=== PATIENT | female | born 1955 | race Caucasian/White ===

== ENCOUNTER 2025-01-04 16:37 | Observation (INO) ==
[2025-01-04 17:10] LABS: Hematocrit (blood only) 39.7 % (37.0-47.0); Hemoglobin 13.7 g/dl (12.0-16.0); Mean Corpuscular Hemoglobin 30.9 pg (25.0-34.0); Mean Corpuscular Volume 89.6 fL (80.0-100.0); Platelet Count 218 K/uL (130-400); RDW Standard Deviation 42.7 fL (36.4-46.3); Red Blood Count 4.43 M/uL (4.20-5.40); White Blood Count 12.16 K/ul (4.8-10.8)
[2025-01-04] MEDS: PIPERACILLIN/TAZOBACTAM 4.5 GM/100 ML BAG IV ONE (17:11)
[2025-01-04] MEDS: SODIUM CHLORIDE 0.9% 1,000 ML IV ONE (17:11)
[2025-01-04 17:16] LABS: Appearance Urine Clear (Clear); Bacteria Urine Automated None Seen (None Seen); Cast Urine Automated 0-2 /lpf (0-2); Epithelial Cell Urine Auto 0-2 /hpf (0-2); Glucose Urine UA Negative (Negative); WBC Urine Automated 0-5 /hpf (0-5)
[2025-01-04 17:29] LABS: Alanine Aminotransferase 35 U/L (7-52); Albumin Globulin Ratio 1.0 (0.9-2); Alkaline Phosphatase 116 U/L (34-104); Anion Gap 10 (3-11); Bilirubin,Total 0.5 mg/dl (0.2-1.0); Blood Urea Nitrogen 15 mg/dl (6-23); Calcium 9.9 mg/dl (8.6-10.3); Carbon Dioxide 22 mmol/L (21-32); Chloride 103 mmol/L (98-107); Globulin 4.0 gm/dl (2.5-4.0); Glucose 124 mg/dl (70-99(Fasting)); Lipase 30 U/L (11-82); Magnesium 2.0 mg/dl (1.7-2.4); Potassium 3.9 mmol/L (3.5-5.1); Sodium 135 mmol/L (136-145); Total Protein 8.1 gm/dl (6.0-8.3)
--- NOTE | 2025-01-04 17:33 | Emergency Department Note ---
Impression & Plan Acute cholecystitis ED Provider Note [facility] AGE: 69 SEX: F : 1955 ARRIVES VIA: Walk-In INFORMANT: Patient, ED PROVIDER(S): Emre Young MD CHIEF COMPLAINT: Cholecystitis HPI: This is an 69-year-old female presenting for cholecystitis. Patient has had symptoms since Tuesday. She went to her PCPs office who scheduled for blood work outpatient CT. 2 days ago she had a leukocytosis to 16. She had a outpatient CAT scan today that revealed acute cholecystitis with gallstone in the gallbladder neck. She reports her symptoms actually improving today. ROS: See above HPI for pertinent positives & negatives. A total of 10 systems reviewed and were otherwise negative. PAST MEDICAL HISTORY: See Below PAST SURGICAL HISTORY: See Below FAMILY HISTORY: See Below SOCIAL HISTORY: See Below HOME MEDICATIONS: See Below ALLERGIES: See Below VITALS: See Below PHYSICAL EXAMINATION: General: resting comfortably in no acute distress Head: Normocephalic and atraumatic Eyes: Normal inspection, extraocular muscles intact Ear, nose, throat: Normal external exam Neck: Normal range of motion Respiratory: lungs clear to auscultation bilaterally Cardiovascular: Regular rate/rhythm, no murmur GI: soft, mild right upper quadrant tenderness guarding or rebound Extremities: nontender, moves all extremities Neuro: The patient awake and alert, appropriately conversive, no focal deficits, symmetric faces Skin: Warm, dry, and intact MEDICAL DECISION MAKING: This is a 69-year-old female present for cholecystitis. -Repeat blood work does reveal downtrending leukocytosis, still elevated at 12. Negative lipase. No transaminitis. Mild tenderness to palpation -With patient's outpatient CT today showing acute cholecystitis, will discuss with surgery -Dr. Sorensen consulted, he states to me the patient to medicine and the cholecystectomy tomorrow -Patient admitted to Dr. Pool service Differential diagnosis: Cholecystitis Diagnostics interpreted by me: ECG: None Cardiac Monitoring: An order was placed for continuous cardiac monitoring. The monitor shows a rate of 80 with sinus rhythm. 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 Arthritis of carpometacarpal (CMC) joint of left thumb Thyroid nodule BIOPSY BENIGN>BEING MONITORED VIA ULTRASOUND History of diverticulitis History of stomach ulcers Surgical History History of carpal tunnel release L History of colonoscopy Hx of foot surgery bilateral plantar fasciitis release History of endometrial ablation History of tubal ligation S/P epidural steroid injection Lumbar H/O meniscectomy of right knee Hx of total knee arthroplasty right knee - November 2013 left knee - February 2014 Family History Grandmother (Maternal) Heart disease Colorectal cancer Cancer Father Melanoma Cancer Grandmother (Paternal) Heart disease Mother Hearing loss Psoriatic arthritis Hypertension Osteoporosis Osteoarthritis Nerve damage Grandfather (Maternal) Alcohol abuse Other Myocardial infarction No family history of adverse response to anesthesia No family history of bleeding disorder Denies family history of Ovarian cancer Prostate cancer Breast cancer Social History Smoking Status: Never smoker Tobacco Type: Cigarettes Age Started Using Tobacco: 16; Age Quit Using Tobacco: 18; packs per day: 0.75; Second Hand Exposure: No; Do You Dip or Chew Tobacco: No; Hx Alcohol Use: No Hx Substance Use: No Preferred Language: Bruneian Communication Ability: Effective Visual Impairment: No Limitations Hearing Ability: Normal Automotive Technology Instructor Required: No Beliefs That Will Affect Care: None marital status: / Current Living Situation: Alone current occupational status: retired 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 [employer] How many Children do You have: 1 Other Information That Helps Us Care for You: No Feels Safe at Home: Yes Safety Concerns: Feels Safe At This Time Childhood Exposure to Second-Hand Smoke: No Diet: regular caffeine: Yes Dental Care, Regularly: Yes Physical Activity Frequency: Does not Exercise Seatbelt Use: always Sunscreen Use: Yes Gender Identity: Female Assistive Devices: None Allergies Allergies Allergy/AdvReac Type Severity Reaction Status Date / Time Iodinated Contrast Media Allergy Intermediate Hives Verified 01/04/25 18:01 vancomycin Allergy Intermediate hearing Verified 01/04/25 18:01 loss Home Meds Home Medications Medication Instructions Recorded Confirmed famotidine 20 mg tablet 20 mg PO DAILY PRN Heartburn 06/15/19 01/04/25 naproxen sodium 220 mg capsule 220 mg PO BID PRN Pain 06/15/19 01/04/25 ascorbic acid (vitamin C) 500 mg 500 mg PO DAILY 07/21/21 01/04/25 capsule calcium carbonate 500 mg PO DAILY 07/21/21 01/04/25 cetirizine 10 mg tablet 10 mg PO QAM PRN Allergy Symptoms 07/21/21 01/04/25 hydrocortisone 2.5 % topical cream 1 applic topical BID PRN Skin 07/21/21 01/04/25 Irritation fluticasone propionate 50 2 spray intranasal DAILY PRN Nasal 10/14/22 01/04/25 mcg/actuation nasal Congestion spray,suspension methylprednisolone 4 mg tablet 0 mg PO ONCE PRN PRIOR TO CT SCAN 01/04/25 01/04/25 (ALLERGY) vitamin B complex 1 tab PO DAILY 01/04/25 01/04/25 zinc gluconate 50 mg tablet 50 mg PO DAILY PRN COLD/FLU SEASON 01/04/25 01/04/25 Previous Rx's Medication Instructions Recorded cholecalciferol (vitamin D3) 125 5,000 units PO DAILY #30 caps 06/15/19 mcg (5,000 unit) capsule diclofenac sodium 1 % topical gel 4 gm topical QID PRN pain #100 06/15/19 grams ferrous sulfate 325 mg (65 mg 325 mg PO DAILY #30 tabs 06/15/19 iron) tablet (FeroSul) multivitamin 1 tab PO DAILY #30 tabs 06/15/19 ondansetron 4 mg disintegrating 4 mg PO Q8H PRN nausea and 01/02/25 tablet vomiting #20 tabs Results & Data (ED) Vital Signs Vital Signs - 24 hr 01/04/25 16:39 Temperature 36.9 C Temperature Source Temporal Artery Scan Pulse Rate 88 Respiratory Rate 19 Respiratory Effort / Characteristics Non-Labored Spontaneous Respiratory Depth Normal Blood Pressure 179/90 H Blood Pressure Mean 119 Pulse Oximetry 97 Oxygen Delivery Method Room Air Sepsis Recent Fever Within 48 Hours No Sepsis New/Unexplained Change in Mental Status N/A Sepsis Action Taken by Nursing No Action Required Laboratory Data 01/04/25 16:50 01/04/25 16:50 Lab Results 01/04/25 Range/Units 16:50 WBC 12.16 H (4.8-10.8) K/ul RBC 4.43 (4.20-5.40) M/uL Hgb 13.7 (12.0-16.0) g/dl Hct 39.7 (37.0-47.0) % MCV 89.6 (80.0-100.0) fL MCH 30.9 (25.0-34.0) pg MCHC 34.5 (32.0-36.0) g/dL RDW Std Deviation 42.7 (36.4-46.3) fL RDW Coeff of Robbie 13.0 (11.5-14.5) % Plt Count 218 (130-400) K/uL MPV 10.2 (9.4-12.4) fL Immature Gran % (Auto) 0.4 % Neut % (Auto) 90.8 % Lymph % (Auto) 7.5 % [place] % (Auto) 1.2 % Eos % (Auto) 0.0 % Baso % (Auto) 0.1 % Neut # (Auto) 11.05 H (1.40-6.50) K/uL Lymph # (Auto) 0.91 L (1.20-3.40) K/uL [place] # (Auto) 0.14 (0.11-0.59) K/uL Eos # (Auto) 0.00 (0.00-0.50) K/uL Baso # (Auto) 0.01 (0.00-0.20) K/uL Immature Gran # (Auto) 0.05 (0.01-0.20) K/uL Sodium 135 L (136-145) mmol/L Potassium 3.9 (3.5-5.1) mmol/L Chloride 103 (98-107) mmol/L Carbon Dioxide 22 (21-32) mmol/L Anion Gap 10 (3-11) BUN 15 (6-23) mg/dl Creatinine 0.68 (0.6-1.2) mg/dl Est Cr Clr Drug Dosing Not Reportable eGFR 94.22 BUN/Creatinine Ratio 22.1 H (10-20) Glucose 124 H (70-99(Fasting)) mg/dl Calcium 9.9 (8.6-10.3) mg/dl Magnesium 2.0 (1.7-2.4) mg/dl Total Bilirubin 0.5 (0.2-1.0) mg/dl AST 24 (13-39) U/L ALT 35 (7-52) U/L Alkaline Phosphatase 116 H (34-104) U/L Total Protein 8.1 (6.0-8.3) gm/dl Albumin 4.1 (3.4-5.0) gm/dl Globulin 4.0 (2.5-4.0) gm/dl Albumin/Globulin Ratio 1.0 (0.9-2) Lipase 30 (11-82) U/L Urine Color Yellow Urine Appearance Clear (Clear) Urine pH 6.0 (4.5-7.5) Ur Specific [place] > 1.045 H (1.000-1.030) Urine Protein 1+ H (Negative) Urine Glucose (UA) Negative (Negative) Urine Ketones 1+ H (Negative) Urine Blood Negative (Negative) Urine Nitrite Negative (Negative) Urine Bilirubin Negative (Negative) Urine Urobilinogen Negative (Negative) Ur Leukocyte Esterase Negative (Negative) Urine WBC (Auto) 0-5 (0-5) /hpf Urine RBC (Auto) 3-5 H (0-2) /hpf U Hyaline Cast (Auto) 0-2 (0-2) /lpf U Epithel Cells (Auto) 0-2 (0-2) /hpf Urine Bacteria (Auto) None Seen (None Seen) Urine Comment Administered Medications Lactated Ringer's (Lr) 1,000 mls @ 80 mls/hr IV .[id number] Stop: 01/05/25 06:59 Last Admin: 01/04/25 18:47 Dose: 80 mls/hr Documented By: CEF Discontinued Medications Sodium Chloride (Nss) 1,000 mls @ 999 mls/hr IV .[id number] ONE Stop: 01/04/25 17:45 Last Infusion: 01/04/25 18:43 Dose: Infused Documented By: Admin: 01/04/25 17:11 Dose: 999 mls/hr Documented By: CATHIE Piperacillin Sod/Tazobactam Sod (Zosyn) 4.5 gm in 100 mls @ 200 mls/hr IV NOW ONE Stop: 01/04/25 17:16 Last Infusion: 01/04/25 18:43 Dose: Infused Documented By: Admin: 01/04/25 17:11 Dose: 200 mls/hr Documented By: ARS Discharge Plan Visit Data Chief Complaint: Referred by Doctor Stated Complaint: INFLAMED GALL BLADDER, GALL STONE ED Provider: Emre Young Discharge Problem: Acute cholecystitis Patient Disposition: Admitted As Inpatient Condition: Fair Discharge Instructions Interventions: ED Discharge Assessment Last Done: 01/04/25 19:22
[2025-01-04 17:41] LABS: Immature Granulocytes # (auto) 0.05 K/uL (0.01-0.20); Immature Granulocytes % (auto) 0.4 %
--- NOTE | 2025-01-04 18:07 | Anesthesiology Consultation ---
Date of Service January 04, 2025 Assessment & Plan Chart Review Chart Review: Acceptable Risk for Surgery and Patient NOT seen in Pre Admission Testing Consults Requested none ASA ASA2 Proposed Anesthesia Anesthesia Type: General History Surgery Operation Date: 01/05/25 08:30 Proposed Procedures p Laparoscopic Cholecystectomy - Ricki Sorensen MD Height/Weight Height: 5 ft 7 in Allergies Allergy/AdvReac Type Severity Reaction Status Date / Time Iodinated Contrast Media Allergy Intermediate Hives Verified 01/04/25 18:01 vancomycin Allergy Intermediate hearing Verified 01/04/25 18:01 loss Medications Home Medications Medication Instructions Recorded Confirmed Last Taken cholecalciferol (vitamin D3) 125 5,000 units PO DAILY #30 caps 06/15/19 01/04/25 02/22/22 mcg (5,000 unit) capsule diclofenac sodium 1 % topical gel 4 gm topical QID PRN pain #100 06/15/19 01/04/25 Unknown grams famotidine 20 mg tablet 20 mg PO DAILY PRN Heartburn 06/15/19 01/04/25 02/22/22 ferrous sulfate 325 mg (65 mg 325 mg PO DAILY #30 tabs 06/15/19 01/04/25 02/22/22 iron) tablet (FeroSul) multivitamin 1 tab PO DAILY #30 tabs 06/15/19 01/04/25 02/22/22 naproxen sodium 220 mg capsule 220 mg PO BID PRN Pain 06/15/19 01/04/25 02/22/22 ascorbic acid (vitamin C) 500 mg 500 mg PO DAILY 07/21/21 01/04/25 02/22/22 capsule calcium carbonate 500 mg PO DAILY 07/21/21 01/04/25 02/22/22 cetirizine 10 mg tablet 10 mg PO QAM 07/21/21 01/04/25 02/22/22 hydrocortisone 2.5 % topical cream 1 applic topical BID PRN . 07/21/21 01/04/25 Unknown fluticasone propionate 50 2 spray intranasal DAILY PRN 10/14/22 01/04/25 Unknown mcg/actuation nasal spray,suspension ondansetron 4 mg disintegrating 4 mg PO Q8H PRN nausea and 01/02/25 01/04/25 Unknown tablet vomiting #20 tabs methylprednisolone 4 mg tablet 0 mg PO ONCE PRN PRIOR TO CT SCAN 01/04/25 01/04/25 01/04/25 (ALLERGY) vitamin B complex 1 tab PO DAILY 01/04/25 01/04/25 01/03/25 zinc gluconate 50 mg tablet 50 mg PO DAILY PRN COLD/FLU SEASON 01/04/25 01/04/25 Unknown Past Medical History Medical History History of diverticulitis History of stomach ulcers ASCVD Aorta HLD ? HTN Exercise / Class Metabolic Activity II 4-5 Yardwork/Stairs/Walk up hill Past Family History Family History Grandmother (Maternal) Heart disease Colorectal cancer Cancer Father Melanoma Cancer Grandmother (Paternal) Heart disease Mother Hearing loss Psoriatic arthritis Hypertension Osteoporosis Osteoarthritis Nerve damage Grandfather (Maternal) Alcohol abuse Other Myocardial infarction No family history of adverse response to anesthesia No family history of bleeding disorder Denies family history of Ovarian cancer Prostate cancer Breast cancer Past Surgical History Surgical History History of carpal tunnel release L History of colonoscopy Hx of foot surgery bilateral plantar fasciitis release History of endometrial ablation History of tubal ligation S/P epidural steroid injection Lumbar H/O meniscectomy of right knee Hx of total knee arthroplasty right knee - November 2013 left knee - February 2014 Past Anesthesia History No Hx of Anesthesia Complications and No Family Hx of Anesthesia Complications History of PONV No Hx of PONV and No Hx of Motion Sickness Social History Smoking Status: Former smoker tobacco type: cigarettes Do You Dip or Chew Tobacco: No Hx Alcohol Use: Yes Alcohol type: wine alcohol intake frequency: holidays/special occasions only Hx Substance Use: No substance use type: does not use Physical Exam Vital Signs Last Vital Signs Temp 36.9 C 01/04/25 16:39 Pulse 88 01/04/25 16:39 Resp 19 01/04/25 16:39 BP 179/90 H 01/04/25 16:39 Pulse Ox 97 01/04/25 16:39 O2 Del Method Room Air 01/04/25 16:39 Testing Laboratory Results 01/04/25 16:50 01/04/25 16:50 Urine Color Yellow 01/04/25 16:50 Urine Appearance Clear (Clear) 01/04/25 16:50 Urine pH 6.0 (4.5-7.5) 01/04/25 16:50 Ur Specific [place] > 1.045 (1.000-1.030) H 01/04/25 16:50 Urine Protein 1+ (Negative) H 01/04/25 16:50 Urine Glucose (UA) Negative (Negative) 01/04/25 16:50 Urine Ketones 1+ (Negative) H 01/04/25 16:50 Urine Nitrite Negative (Negative) 01/04/25 16:50 Ur Leukocyte Esterase Negative (Negative) 01/04/25 16:50 Urine WBC (Auto) 0-5 /hpf (0-5) 01/04/25 16:50 Urine RBC (Auto) 3-5 /hpf (0-2) H 01/04/25 16:50 U Hyaline Cast (Auto) 0-2 /lpf (0-2) 01/04/25 16:50 U Epithel Cells (Auto) 0-2 /hpf (0-2) 01/04/25 16:50 Urine Bacteria (Auto) None Seen (None Seen) 01/04/25 16:50 Electrocardiogram Date: 10/10/20 Findings: + NSR @ (@ 71;LAD;Low voltage ) Chest X-Ray Date: 05/13/23 Findings: + NAD and + atherosclerosis of thoracic aorta
--- NOTE | 2025-01-04 18:32 | History & Physical Report ---
Date of Service January 04, 2025 Assessment & Plan (1) Acute cholecystitis: (2) Iron deficiency anemia: Plan 69 y/o female with PMh of Sensorineural hearing loss, OA, iron deficiency anemia admitted for acute cholecystitis. Patient will be admitted for IV antibiotics and surgical procedure in AM Acute cholecystitis - RUQ pain, nausea, chills since that started on 01/02 - Outpatient Abdomen CT with findings of acute cholecystitis - WBC with leukocytosis of 12.16 - Alkaline phosphatase: 116, AST: 24, ALT 35 - Surgery consulted: Plan for Lap cholecystectomy tomorrow AM - NPO now, LR 80 ml/hr - Continue Zosyn IV until surgical intervention - Pain management - Tylenol, morphine as needed - Labs AM DVT prophylaxis: SCD only due to surgical intervention Dispo : Med surg History of Present Illness Chief Complaint: Primary Care Provider: Amira Burkett MD Patient is a 69 y/o female with PMH of Sensorineural hearing loss, OA, iron deficiency anemia that presented to the Ed due to Acute cholecystitis. Patient developed RUQ pain, nausea, chills in Tuesday. Pain worsen over the next couple of days. She saw her PCP on 01/02 which ordered Labs and Abdomen CT. She was sent to the ED by PCP after CT results of Acute cholecystitis. Patient states having nausea and minimal diarrhea. She denied any fevers, but attributes some chills. Denies chest pain, SOB, palpitations. Denied any side effects with anesthesia in the past. Ed course: started on zosyn, IV NSS. Allergies Allergy/AdvReac Type Severity Reaction Status Date / Time Iodinated Contrast Media Allergy Intermediate Hives Verified 01/04/25 18:01 vancomycin Allergy Intermediate hearing Verified 01/04/25 18:01 loss Home Medications Medication Instructions Recorded Confirmed Type cholecalciferol (vitamin D3) 125 5,000 units PO DAILY #30 caps 06/15/19 01/04/25 Rx mcg (5,000 unit) capsule diclofenac sodium 1 % topical gel 4 gm topical QID PRN pain #100 06/15/19 01/04/25 Rx grams famotidine 20 mg tablet 20 mg PO DAILY PRN Heartburn 06/15/19 01/04/25 History ferrous sulfate 325 mg (65 mg 325 mg PO DAILY #30 tabs 06/15/19 01/04/25 Rx iron) tablet (FeroSul) multivitamin 1 tab PO DAILY #30 tabs 06/15/19 01/04/25 Rx naproxen sodium 220 mg capsule 220 mg PO BID PRN Pain 06/15/19 01/04/25 History ascorbic acid (vitamin C) 500 mg 500 mg PO DAILY 07/21/21 01/04/25 History capsule calcium carbonate 500 mg PO DAILY 07/21/21 01/04/25 History cetirizine 10 mg tablet 10 mg PO QAM PRN Allergy Symptoms 07/21/21 01/04/25 History hydrocortisone 2.5 % topical cream 1 applic topical BID PRN Skin 07/21/21 01/04/25 History Irritation fluticasone propionate 50 2 spray intranasal DAILY PRN Nasal 10/14/22 01/04/25 History mcg/actuation nasal Congestion spray,suspension ondansetron 4 mg disintegrating 4 mg PO Q8H PRN nausea and 01/02/25 01/04/25 Rx tablet vomiting #20 tabs methylprednisolone 4 mg tablet 0 mg PO ONCE PRN PRIOR TO CT SCAN 01/04/25 01/04/25 History (ALLERGY) vitamin B complex 1 tab PO DAILY 01/04/25 01/04/25 History zinc gluconate 50 mg tablet 50 mg PO DAILY PRN COLD/FLU SEASON 01/04/25 01/04/25 History Past Med/Surg History Problem List (Updated 01/04/25 @ 18:50 by Tommie Pool MD) Acute cholecystitis Iron deficiency anemia Sensorineural hearing loss (SNHL) of both ears Bilateral tinnitus Medical History (Updated 01/04/25 @ 18:50 by Tommie Pool MD) Goiter Arthritis of left subtalar joint Right carpal tunnel syndrome 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 Arthritis of carpometacarpal (CMC) joint of left thumb Thyroid nodule BIOPSY BENIGN>BEING MONITORED VIA ULTRASOUND History of diverticulitis History of stomach ulcers Surgical History History of carpal tunnel release L History of colonoscopy Hx of foot surgery bilateral plantar fasciitis release History of endometrial ablation History of tubal ligation S/P epidural steroid injection Lumbar H/O meniscectomy of right knee Hx of total knee arthroplasty right knee - November 2013 left knee - February 2014 Family History Grandmother (Maternal) Heart disease Colorectal cancer Cancer Father Melanoma Cancer Grandmother (Paternal) Heart disease Mother Hearing loss Psoriatic arthritis Hypertension Osteoporosis Osteoarthritis Nerve damage Grandfather (Maternal) Alcohol abuse Other Myocardial infarction No family history of adverse response to anesthesia No family history of bleeding disorder Denies family history of Ovarian cancer Prostate cancer Breast cancer Social History Smoking Status: Former smoker Tobacco Type: Cigarettes Age Started Using Tobacco: 16; Age Quit Using Tobacco: 18; packs per day: 0.75; Second Hand Exposure: No; Do You Dip or Chew Tobacco: No; Hx Alcohol Use: Yes Alcohol type: wine Alcohol Intake Frequency: Monthly or Less Hx Substance Use: No Preferred Language: Occitan Communication Ability: Effective Visual Impairment: No Limitations Hearing Ability: Normal Principal Systems Engineer Required: No Beliefs That Will Affect Care: None marital status: / Current Living Situation: Alone current occupational status: retired 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 [email or web address] How many Children do You have: 1 Feels Safe at Home: Yes Childhood Exposure to Second-Hand Smoke: No Diet: regular caffeine: Yes Dental Care, Regularly: Yes Physical Activity Frequency: Does not Exercise Seatbelt Use: always Sunscreen Use: Yes Gender Identity: Female Assistive Devices: Contacts, Denture - Lower and Glasses Review of Systems Review of Systems: as per HPI Physical Exam Constitutional: well developed and well nourished; no acute distress Eyes: PERRL, conjunctivae normal, anicteric sclerae Respiratory: normal respiratory effort, lungs clear to auscultation Cardiovascular: RRR, no murmur, no edema Gastrointestinal (Abdomen): Inspection/Auscultation: abdomen normal to inspection and normal bowel sounds Percussion/Palpation: + abdomen tender (Mild RUQ tenderness) and abdomen soft; no guarding, abdomen not rigid and no hepatosplenomegaly Skin: no rashes, warm and dry Results & Data Results & Data Vital Signs (Past 12 Hours) Vital Signs Temp Pulse Resp BP Pulse Ox O2 Del Method 01/04/25 16:39 36.9 C 88 19 179/90 H 97 Room Air Code Status & VTE Plan VTE Prophylaxis Plan VTE Prophylaxis will be ordered: Yes Supervising Physician Co-Signing Physician Notes Attending attestation Pt seen and examined in concert with Dr. Tom Richmond. In agreement with the documented findings as noted in the resident documentation with any exceptions or additions as noted here. Resting comfortably in bed without pain, nausea, vomiting at time of examination. 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 Also concerned re: diet at [place] next week. VS as noted. On examination, S1/S2 nl RRR no MCG. CTAB. Abd NT/ND BS+ve Cholecystitis - general surg consult - NPO past midnight w/ IVF for OR in AM. Pain control as noted. Continue pip/tazo SNHL secondary to vancomycin - avoid use Iron deficiency anemia - Hgb stable as noted - monitor perioperatively Else see resident documentation as noted. Resident Activity Tracking Resident Involvement: Resident Care Provided Care Provided: Adult Hospital Medicine
[2025-01-04] MEDS: LACTATED RINGER'S 1,000 ML IV SCH (18:47)
[2025-01-04] MEDS ORDERED: MELATONIN 3 MG TAB PO PRN (19:54)
[2025-01-04] MEDS ORDERED: FAMOTIDINE 20 MG TAB PO PRN (19:54)
[2025-01-04] MEDS ORDERED: FLUTICASONE PROPIONATE NA SPR 16 GM BTL NAE PRN (19:54)
[2025-01-04] MEDS ORDERED: CETIRIZINE HCL 10 MG TABLET PO PRN (19:54)
[2025-01-04] MEDS ORDERED: ONDANSETRON INJ 2 MG/ML 2 ML VIAL IV PRN (19:54)
[2025-01-04] MEDS: PIPERACILLIN/TAZOBACTAM 4.5 GM/100 ML BAG IV SCH (23:29)
[2025-01-05 07:03] LABS: Hematocrit (blood only) 40.9 % (37.0-47.0); Hemoglobin 13.4 g/dl (12.0-16.0); Immature Granulocytes # (auto) 0.11 K/uL (0.01-0.20); Immature Granulocytes % (auto) 0.7 %; Mean Corpuscular Hemoglobin 30.3 pg (25.0-34.0); Mean Corpuscular Volume 92.5 fL (80.0-100.0); Platelet Count 226 K/uL (130-400); RDW Standard Deviation 44.1 fL (36.4-46.3); Red Blood Count 4.42 M/uL (4.20-5.40); White Blood Count 14.73 K/ul (4.8-10.8)
[2025-01-05] MEDS ORDERED: MIDAZOLAM HCL 1 MG/ML 2ML VIAL ONE (07:24)
[2025-01-05 07:33] LABS: INR 1.0 (0.9-1.1); Partial Thromboplastin Time 28 Seconds (21-31); Prothrombin Time 11.2 Seconds (9.0-12.0)
[2025-01-05 07:35] LABS: Alanine Aminotransferase 30.0 U/L (7-52); Albumin Globulin Ratio 1.2 (0.9-2); Alkaline Phosphatase 100.0 U/L (34-104); Anion Gap 9.0 (3-11); Bilirubin,Total 0.5 mg/dl (0.2-1.0); Blood Urea Nitrogen 15.0 mg/dl (6-23); Calcium 9.6 mg/dl (8.6-10.3); Carbon Dioxide 26.0 mmol/L (21-32); Chloride 107.0 mmol/L (98-107); Creatinine Clr Calc Pharmacy 86.9 ml/min; Globulin 3.3 gm/dl (2.5-4.0); Glucose 93.0 mg/dl (70-99(Fasting)); Potassium 3.6 mmol/L (3.5-5.1); Sodium 142.0 mmol/L (136-145); Total Protein 7.3 gm/dl (6.0-8.3)
[2025-01-05] MEDS ORDERED: ONDANSETRON INJ 2 MG/ML 2 ML VIAL ONE (07:54)
[2025-01-05] MEDS ORDERED: PROPOFOL IV EMULSION 10 MG/ML 20 ML VIAL IV ONE ×2 (07:54→10:35)
[2025-01-05] MEDS ORDERED: DEXAMETHASONE SOD INJ 4 MG/ML VIAL ONE (07:54)
[2025-01-05] MEDS ORDERED: ROCURONIUM BROMIDE 10 MG/ML 5 ML VIAL IV ONE (07:54)
[2025-01-05] MEDS ORDERED: LIDOCAINE 2% 2 ML VIAL/AMP(20MG/ML) INFIL ONE (07:54)
[2025-01-05] MEDS ORDERED: ACETAMINOPHEN 1000 MG/100 ML IV IV ONE (09:15)
--- NOTE | 2025-01-05 09:17 | Surgery Consultation ---
Date of Consultation January 05, 2025 Assessment & Plan (1) Acute cholecystitis: IVF IV abx to OR for lap chana risks discussed in detail History of Present Illness Attending Physician: Chung Walker History of Present Illness This is a 69YO female admitted with acute cholecystitis. Her pain has improved but did have nausea and chills associated. An outpatient CT scan showed acute cholecystitis. She denied any fevers, but attributes some chills. Allergies Allergy/AdvReac Type Severity Reaction Status Date / Time Iodinated Contrast Media Allergy Intermediate Hives Verified 01/04/25 18:01 vancomycin Allergy Intermediate hearing Verified 01/04/25 18:01 loss Home Medications Medication Instructions Recorded Confirmed Type cholecalciferol (vitamin D3) 125 5,000 units PO DAILY #30 caps 06/15/19 01/04/25 Rx mcg (5,000 unit) capsule diclofenac sodium 1 % topical gel 4 gm topical QID PRN pain #100 06/15/19 01/04/25 Rx grams famotidine 20 mg tablet 20 mg PO DAILY PRN Heartburn 06/15/19 01/04/25 History ferrous sulfate 325 mg (65 mg 325 mg PO DAILY #30 tabs 06/15/19 01/04/25 Rx iron) tablet (FeroSul) multivitamin 1 tab PO DAILY #30 tabs 06/15/19 01/04/25 Rx naproxen sodium 220 mg capsule 220 mg PO BID PRN Pain 06/15/19 01/04/25 History ascorbic acid (vitamin C) 500 mg 500 mg PO DAILY 07/21/21 01/04/25 History capsule calcium carbonate 500 mg PO DAILY 07/21/21 01/04/25 History cetirizine 10 mg tablet 10 mg PO QAM PRN Allergy Symptoms 07/21/21 01/04/25 History hydrocortisone 2.5 % topical cream 1 applic topical BID PRN Skin 07/21/21 01/04/25 History Irritation fluticasone propionate 50 2 spray intranasal DAILY PRN Nasal 10/14/22 01/04/25 History mcg/actuation nasal Congestion spray,suspension ondansetron 4 mg disintegrating 4 mg PO Q8H PRN nausea and 01/02/25 01/04/25 Rx tablet vomiting #20 tabs methylprednisolone 4 mg tablet 0 mg PO ONCE PRN PRIOR TO CT SCAN 01/04/25 01/04/25 History (ALLERGY) vitamin B complex 1 tab PO DAILY 01/04/25 01/04/25 History zinc gluconate 50 mg tablet 50 mg PO DAILY PRN COLD/FLU SEASON 01/04/25 01/04/25 History Patient History Medical History (Updated 01/04/25 @ 23:28 by Emre Young MD) Goiter Arthritis of left subtalar joint Right carpal tunnel syndrome 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 Arthritis of carpometacarpal (CMC) joint of left thumb Thyroid nodule BIOPSY BENIGN>BEING MONITORED VIA ULTRASOUND History of diverticulitis History of stomach ulcers Surgical History History of carpal tunnel release L History of colonoscopy Hx of foot surgery bilateral plantar fasciitis release History of endometrial ablation History of tubal ligation S/P epidural steroid injection Lumbar H/O meniscectomy of right knee Hx of total knee arthroplasty right knee - November 2013 left knee - February 2014 Family History Grandmother (Maternal) Heart disease Colorectal cancer Cancer Father Melanoma Cancer Grandmother (Paternal) Heart disease Mother Hearing loss Psoriatic arthritis Hypertension Osteoporosis Osteoarthritis Nerve damage Grandfather (Maternal) Alcohol abuse Other Myocardial infarction No family history of adverse response to anesthesia No family history of bleeding disorder Denies family history of Ovarian cancer Prostate cancer Breast cancer Social History Smoking Status: Never smoker Tobacco Type: Cigarettes Age Started Using Tobacco: 16; Age Quit Using Tobacco: 18; packs per day: 0.75; Second Hand Exposure: No; Do You Dip or Chew Tobacco: No; Hx Alcohol Use: No Hx Substance Use: No Preferred Language: Montenegrin Communication Ability: Effective Visual Impairment: No Limitations Hearing Ability: Normal Yard Crane Operator Required: No Beliefs That Will Affect Care: None marital status: / Current Living Situation: Alone current occupational status: retired 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 [employer] How many Children do You have: 1 Other Information That Helps Us Care for You: No Feels Safe at Home: Yes Safety Concerns: Feels Safe At This Time Childhood Exposure to Second-Hand Smoke: No Diet: regular caffeine: Yes Dental Care, Regularly: Yes Physical Activity Frequency: Does not Exercise Seatbelt Use: always Sunscreen Use: Yes Gender Identity: Female Assistive Devices: None Review of Systems Constitutional: + chills; no fever Eyes: no problem reported Ear, Nose, Mouth, Throat: no problem reported Respiratory: no cough and no dyspnea Cardiovascular: no chest pain Gastrointestinal: + abdominal pain and + nausea; no vomiti ng and no change in bowel habits Genitourinary: no dysuria Musculoskeletal: no back pain Integumentary: no problem reported Neurologic: no localized weakness and no generalized weakness Psychiatric: no behavioral changes Hematologic / Lymphatic: no easy bleeding and no easy bruising Physical Exam Constitutional: WD/WN, vitals as above Eyes: no scleral abnormality ENMT: external ear and nose normal, oropharynx normal Neck: trachea midline Respiratory: normal respiratory effort, lungs clear to auscultation Cardiovascular: RRR, no murmur, no edema Gastrointestinal (Abdomen): Inspection/Auscultation: abdomen normal to inspection and normal bowel sounds; abdomen not distended Percussion/Palpation: + abdomen tender and abdomen soft; no guarding and abdomen not rigid Musculoskeletal: Head/Neck/Chest: normocephalic and head atraumatic Skin: no rashes, warm and dry Results & Data Vital Signs (Past 12 Hours) Vital Signs Temp Pulse Resp BP Pulse Ox O2 Del Method 01/05/25 07:45 36.6 C 16 141/62 H 96 Room Air 01/04/25 23:02 36.7 C 80 18 127/70 97 Room Air Diagnostic Findings CT SCAN OF THE ABDOMEN AND PELVIS WITH IV CONTRAST CLINICAL HISTORY: Right upper quadrant and epigastric pain. COMPARISON STUDY: CT of the abdomen and pelvis October 31, 2020. TECHNIQUE: Following the IV administration of 93 cc of Optiray 320, CT scan of the abdomen and pelvis is performed from the lung bases to the proximal femora. Images are reviewed in the axial, sagittal, and coronal planes. IV contrast was administered without complication. A dose lowering technique was utilized adhering to the principles of ALARA. CT DOSE: 1520.31 mGy.cm FINDINGS: Visualized portions of the lung bases are unremarkable. There is no pneumatosis, free air or portal venous gas. There is no biliary or pancreatic ductal dilatation. The gallbladder is mildly distended. The wall is moderately thickened. Adjacent infiltration is noted. There is a 1.9 cm gallstone within the gallbladder neck. The spleen, adrenal glands, pancreas and kidneys are normal. There is no evidence for a bowel obstruction. There is colonic diverticulosis. There is subtle stranding adjacent to the mid sigmoid colon. No free air is present. There is no fluid collection. Several fibroids are again noted. IMPRESSION: 1. Findings consistent with acute cholecystitis. A gallstone within the gallbladder neck with gallbladder distention, wall thickening and pericholecystic stranding. The findings will be called/faxed to ordering provider at time of dictation. 1. Colonic diverticulosis. Subtle stranding adjacent to the mid sigmoid colon. Mild acute diverticulitis would be difficult to exclude. No free air. No abscess.
[2025-01-05] MEDS ORDERED: PROMETHAZINE HCL 6.25 MG in SODIUM CHLORIDE 0.9% 50 ML IV PRN (09:36)
[2025-01-05] MEDS ORDERED: ATROPINE SULFATE 0.1 MG/ML 10ML SYR IV PRN (09:36)
[2025-01-05] MEDS ORDERED: ONDANSETRON INJ 2 MG/ML 2 ML VIAL IV PRN ×2 (09:36→11:39)
[2025-01-05] MEDS ORDERED: FLUMAZENIL 0.1 MG/1 ML 10 ML VIAL IV PRN (09:36)
[2025-01-05] MEDS ORDERED: HYDROmorphone INJ 1 MG/ML SYRINGE IV PRN (09:36)
[2025-01-05] MEDS ORDERED: NALOXONE HCL 0.4 MG/1 ML VIAL/CARP IV PRN (09:36)
[2025-01-05] MEDS ORDERED: KETOROLAC 30 MG/ML VIAL ONE (09:52)
[2025-01-05] MEDS ORDERED: SUGAMMADEX SODIUM 200 MG/2 ML VIAL IV ONE (09:52)
[2025-01-05] MEDS: SURGICEL ABSORB HEMOSTAT 2IN X 14IN TOP ONE (10:25)
[2025-01-05] MEDS: BUPIVACAINE/EPINEPHRINE 0.5% MPF 1:200,000 30 ML VIAL ONE (10:35)
--- NOTE | 2025-01-05 10:49 | Operative Report ---
Post Operative Report Pre & Post Diagnosis Operation Date: 01/05/25 10:00 Pre-Op Diagnosis: Acute cholecystitis Post-Op Diagnosis: Acute cholecystitis I identified the patient and participated in the time-out.: Yes Procedure Operation Date: 01/05/25 10:00 Actual Procedures p Laparoscopic Cholecystectomy(Not Applicable) - Ricki Sorensen MD Surgeon Ricki Sorensen MD Dried Fruit Washer None Estimated Blood Loss 45 Findings Consistent with Post-Op Diagnosis Specimens Gallbladder to pathology Drains None Anesthesia Type General Complications none Disposition Accompanied Patient To Recovery: No Disposition: Recovery Room Indications This is a 69-year-old female admitted from the ED with acute abdominal pain. Workup showed acute cholecystitis by an outpatient CT scan. She was placed on IV fluids, IV antibiotics and will be taken the OR for laparoscopic cholecystectomy. She understands all the risks and wishes to proceed. Description of Procedure The patient was taken the OR, placed in the supine position and underwent excellent general endotracheal anesthesia. Their abdomen is prepped and draped normal sterile fashion. A transverse supraumbilical incision was made and dissection was taken down to identify the anterior fascia. Two Vicryl sutures were placed on either side of the midline and his midline was then incised. The peritoneal cavity was entered bluntly with Yesenia clamp. A 12mm Allan trocar was then inserted and secured. Good pneumoperitoneum was achieved to 15 mmHg pressure. The patient was placed in head up and rolled to the left position. A 11mm subxiphoid and two 5mm lateral ports were placed in the normal fashion. The gallbladder was identified and was acutely inflamed. An aspirator was then used to aspirate the gallbladder. This then facilitated grasping the the fundus of the gallbladder which was retracted superiorly. The neck of the gallbladder was grasped and then retracted laterally. This splayed open the Hepatocystic triangle. Attention was then turned to taking down the peritoneal attachments and identify the cystic duct and cystic artery. Once these were skeletonized and a medial and lateral window was created between the gallbladder fossa and the duct, thereby ensuring the critical view. Then three clips were then placed distally on cystic duct one proximally on the cystic duct, it was then transected. Two clips were then placed approximately on the cystic artery one distally, the cystic artery was transected. An electrocautery hook was then used to move the gallbladder off the gallbladder fossa. There was some bile spillage but no stones were spilled. The gallbladder was then placed into an Endobag and brought out through the supraumbilical incision. The pneumoperitoneum was re-established and abdomen was irrigated out until the suction fluid was clear. There were some areas on the gallbladder fossa which were raw which were cauterized and then a Surgicel was used to cover the gallbladder fossa. The ports were then removed and the abdomen decompressed. The fascia of the supraumbilical incision was closed with Vicryl sutures. 0.5% Marcaine with epinephrine local was to create a local field block. A Vicryl suture was used to close the skin. Dermabond was used to reinforce the incisions. Sterile dressings were applied. Patient tolerated the procedure without complication and sent to the postop recovery period of observation. They will then be sent to the floor for the rest of their care. I attest to the content of the Intraoperative Record and any orders documented therein. Any exceptions are noted below.
[2025-01-05] MEDS ORDERED: MoRPHine SULFATE 4 MG/ML 1 ML CARP\\VIAL IV PRN (11:39)
[2025-01-05] MEDS ORDERED: MoRPHine SULFATE 2 MG/ML CARP IV PRN (11:39)
[2025-01-05] MEDS ORDERED: PROMETHAZINE 12.5 MG/50.5 ML BAG IV PRN (11:39)
--- NOTE | 2025-01-05 11:41 | Anesthesiology Progress Note ---
Date of Service January 05, 2025 Anesthesia Post Procedure Vital Signs Vital Signs: Temp Pulse Pulse Resp BP BP Pulse Ox 01/05/25 11:25 36.5 C 69 21 154/70 H 97 01/05/25 11:20 74 20 159/78 H 96 01/05/25 11:10 72 20 174/74 H 100 01/05/25 11:00 69 13 115/64 94 01/05/25 10:53 36.3 C L 66 13 114/61 92 01/05/25 07:45 36.6 C 16 141/62 H 96 01/04/25 23:02 36.7 C 80 18 127/70 97 01/04/25 20:39 36.7 C 18 171/74 H 97 01/04/25 19:54 36.7 C 18 171/74 H 97 01/04/25 19:11 36.8 C 77 22 140/89 96 01/04/25 18:37 78 01/04/25 16:39 36.9 C 88 19 179/90 H 97 O2 Del Method O2 Flow Rate 01/05/25 11:25 Room Air 0 01/05/25 11:20 Room Air 0 01/05/25 11:10 Oxymask 8 01/05/25 11:00 Oxymask 15 01/05/25 10:53 Oxymask 15 01/05/25 07:45 Room Air 01/04/25 23:02 Room Air 01/04/25 20:39 Room Air 01/04/25 19:54 Room Air 01/04/25 19:11 Room Air 01/04/25 18:37 01/04/25 16:39 Room Air Pain Intensity Abdomen: Pain Intensity: 4 Transfer of Care Handoff Completed per policy Notes Mental Status: alert / awake / arousable Patient Amnestic to Procedure: Yes Nausea / Vomiting: adequately controlled Pain: adequately controlled Airway Patency, RR, SpO2: stable & adequate BP & HR: stable & adequate Hydration State: stable & adequate Anesthetic Complications: no major complications apparent
--- NOTE | 2025-01-05 12:09 | Hospitalist Progress Note ---
Date of Service January 05, 2025 Assessment & Plan (1) Acute cholecystitis: (2) Iron deficiency anemia: Plan 69 y/o female with PMh of Sensorineural hearing loss, OA, iron deficiency anemia admitted for acute cholecystitis. #Acute cholecystitis RUQ pain started 01/02 CTAP: findings consistent w/ acute choley LFTs WNL, WBC w/ mild leukocytosis of 14.73 Continue IV Zosyn General surgery consulted - s/p lap choley 01/05 w/ Dr. Sorensen Advance diet as tolerated Pain management w/ Tylenol & Morphine prn. DVT prophylaxis: SCDs Dispo : Med surg Anticipate discharge home 01/06. Admission and Anticipated Discharge Date Admission Date: January 04, 2025 Jolly Stuart was seen and examined this afternoon following her lap choley. She was doing well at time of encounter. she had expected post op abdominal pain. denies any n/v. She tolerated lunch and has urinated. she has not passed gas. Physical Exam Constitutional: no acute distress Respiratory: normal respiratory effort Skin: no rashes, warm and dry Neurologic: PERRL, EOMI, accommodation nl, no face palsy, no dysarthria Psychiatric: A+Ox3, euthymic affect Results & Data Results & Data Vital Signs (Past 12 Hours) Vital Signs Temp Pulse Pulse Resp BP BP Pulse Ox 01/05/25 11:40 36.3 C L 68 16 169/80 H 97 01/05/25 11:25 36.5 C 69 21 154/70 H 97 01/05/25 11:20 74 20 159/78 H 96 01/05/25 11:10 72 20 174/74 H 100 01/05/25 11:00 69 13 115/64 94 01/05/25 10:53 36.3 C L 66 13 114/61 92 01/05/25 07:45 36.6 C 16 141/62 H 96 O2 Del Method O2 Flow Rate 01/05/25 11:40 Room Air 01/05/25 11:25 Room Air 0 01/05/25 11:20 Room Air 0 01/05/25 11:10 Oxymask 8 01/05/25 11:00 Oxymask 15 01/05/25 10:53 Oxymask 15 01/05/25 07:45 Room Air PG Care Time/CCT Total # of Minutes Spent Total Time Spent with Patient: Total time spent is greater than 50% in coordination of care (as documented) at patient's floor/unit and/or counseling patient: Coding Level of Care Code 96400 SUB INP/OBS CARE 235MIN Diagnoses Acute cholecystitis K81.0 Iron deficiency anemia D50.9
[2025-01-05] MEDS: ACETAMINOPHEN 325 MG TAB PO PRN (18:46)
[2025-01-05 23:28] VITALS: O2SAT 96
[2025-01-06 06:18] LABS: Hematocrit (blood only) 35.5 % (37.0-47.0); Hemoglobin 11.8 g/dl (12.0-16.0); Immature Granulocytes # (auto) 0.04 K/uL (0.01-0.20); Immature Granulocytes % (auto) 0.4 %; Mean Corpuscular Hemoglobin 30.8 pg (25.0-34.0); Mean Corpuscular Volume 92.7 fL (80.0-100.0); Platelet Count 177 K/uL (130-400); RDW Standard Deviation 43.7 fL (36.4-46.3); Red Blood Count 3.83 M/uL (4.20-5.40); White Blood Count 10.79 K/ul (4.8-10.8)
[2025-01-06 08:55] LABS: Alanine Aminotransferase 51.0 U/L (7-52); Albumin Globulin Ratio 1.3 (0.9-2); Alkaline Phosphatase 85.0 U/L (34-104); Anion Gap 5.0 (3-11); Bilirubin,Total 0.6 mg/dl (0.2-1.0); Blood Urea Nitrogen 14.0 mg/dl (6-23); Calcium 8.7 mg/dl (8.6-10.3); Carbon Dioxide 28.0 mmol/L (21-32); Chloride 108.0 mmol/L (98-107); Creatinine Clr Calc Pharmacy 71.5 ml/min; Globulin 2.6 gm/dl (2.5-4.0); Glucose 90.0 mg/dl (70-99(Fasting)); Potassium 3.6 mmol/L (3.5-5.1); Sodium 141.0 mmol/L (136-145); Total Protein 5.9 gm/dl (6.0-8.3)
[2025-01-06 09:00] VITALS: RESP 18; TEMP 98.2
--- NOTE | 2025-01-06 10:29 | Discharge Summary ---
Discharge Summary Date of Service January 06, 2025 Principal Dx & Hospital Course #1 = Principal Diagnosis (1) Acute cholecystitis: (2) Iron deficiency anemia: Plan 69 y/o female with PMh of Sensorineural hearing loss, OA, iron deficiency anemia admitted for acute cholecystitis. #Acute cholecystitis RUQ pain started 01/02 CTAP: findings consistent w/ acute choley LFTs WNL, Leukocytosis resolved. s/p IV Zosyn General surgery consulted - s/p lap choley 01/05 w/ Dr. Sorensen Advance diet as tolerated Pain management w/ Tylenol & Tramadol prn at home. - per patient she does not tolerate oxycodone well. Discharged home 01/06. Admission HPI Per Admitting Provider Patient is a 69 y/o female with PMH of Sensorineural hearing loss, OA, iron deficiency anemia that presented to the Ed due to Acute cholecystitis. Patient developed RUQ pain, nausea, chills in Tuesday. Pain worsen over the next couple of days. She saw her PCP on 01/02 which ordered Labs and Abdomen CT. She was sent to the ED by PCP after CT results of Acute cholecystitis. Patient states having nausea and minimal diarrhea. She denied any fevers, but attributes some chills. Denies chest pain, SOB, palpitations. Denied any side effects with anesthesia in the past. Ed course: started on zosyn, IV NSS. Discharge Exam Constitutional no acute distress Respiratory normal respiratory effort Neurologic PERRL, EOMI, accommodation nl, no face palsy, no dysarthria Psychiatric A+Ox3, euthymic affect Discharge Plan Discharge Items Patient Disposition: Home - Self-Care Reason For Visit: ACUTE CHOLESCYSTITIS Discharge Diagnosis: Acute cholecystitis Condition on Discharge: Fair Activity: Per Instructions section Lifting: No more than 5 pounds Bathing: Keep incision dry Exercise/Sports: Wait until after follow-up appointment Non-emergency contact: Primary Care Provider and Surgeon Call non-emergency contact if: you have any medication questions, your symptoms worsen and you have a fever Follow-up/Referrals: Amira Burkett MD [Primary Care Provider] - Ricki Sorensen MD [Physician] - Diet: Low Fat Addtl Attending Provider Instructions: Ms. Russell, You were recently hospitalized for abdominal pain & were found to have acute inflammation of your gallbladder. This was removed on 01/05/[address] Sorensen. Please see recommendations below regarding your discharge. Please take Tylenol 1000mg every 8 hours as needed for pain/discomfort. If you do experience severe pain, you may use Tramadol every 6 hours as needed. Please follow up with your surgeon in 2 weeks from your office visit. If you have any questions, their phone number is above. You may resume the remainder of your outpatient medications. Please follow up with your PCP within 1-2 weeks of discharge for continued care. Best of luck! Adenike Rowland PA-C Pending Studies at Discharge: No Stand-Alone Forms: My [facility] [place], Smoking Cessation Medications and DC Order Prescriptions: New tramadol 25 mg tablet 25 mg PO Q6H PRN (Reason: pain (scale score 7-10)) Qty: 5 0RF Continued calcium carbonate 500 mg calcium (1,250 mg) tablet 500 mg PO DAILY hydrocortisone 2.5 % cream 1 applic topical BID PRN (Reason: Skin Irritation) Rx Instructions: Apply to the affected area BID for 2 weeks. cetirizine 10 mg tablet 10 mg PO QAM PRN (Reason: Allergy Symptoms) multivitamin Tablet 1 tab PO DAILY Qty: 30 0RF cholecalciferol (vitamin D3) 125 mcg (5,000 unit) capsule 5,000 units PO DAILY Qty: 30 0RF ferrous sulfate [FeroSul] 325 mg (65 mg iron) tablet 325 mg PO DAILY Qty: 30 0RF naproxen sodium 220 mg capsule 220 mg PO BID PRN (Reason: Pain) famotidine 20 mg tablet 20 mg PO DAILY PRN (Reason: Heartburn) diclofenac sodium 1 % gel 4 gm TOP QID PRN (Reason: pain) Qty: 100 3RF ascorbic acid (vitamin C) 500 mg capsule 500 mg PO DAILY fluticasone propionate 50 mcg/actuation spray,suspension 2 spray intranasal DAILY PRN (Reason: Nasal Congestion) Patient Comments: PRN Rx Instructions: administer into each nostril ondansetron 4 mg tablet,disintegrating 4 mg PO Q8H PRN (Reason: nausea and vomiting) Qty: 20 0RF methylprednisolone [Methylprednisone] 4 mg Tablet 0 mg PO ONCE PRN (Reason: PRIOR TO CT SCAN (ALLERGY)) Rx Instructions: TOOK PRIOR TO CT SCAN, 01/04/25. vitamin B complex Tablet 1 tab PO DAILY zinc gluconate 50 mg Tablet 50 mg PO DAILY PRN (Reason: COLD/FLU SEASON) Discharge Orders: Discharge Order (Routine); Ordered 01/06/25 Ordered By: Adenike Rowland Admission Data Admit Date/Time: 01/04/25 18:15 Attending Provider: Chung Walker Admit Provider: Tommie Pool Primary Care Provider: Amira Burkett Other Providers: Tommie Pool; Ricki Sorensen Hospital Stay Data Consultations 01/04/25 17:32 ED Decision to Admit Stat 01/04/25 19:54 Consult General Surgery Routine Procedures Performed Operation Date: 01/05/25 10:00 Actual Procedures p Laparoscopic Cholecystectomy(Not Applicable) - Ricki Sorensen MD Pending Results Patient Have Any Pending Studies at Discharge: No Discharge Instructions Given to Patient (Per Discharging Provider) Ms. Russell, Emmanuel were recently hospitalized for abdominal pain & were found to have acute inflammation of your gallbladder. This was removed on 01/05/[address] Sorensen. Please see recommendations below regarding your discharge. Please take Tylenol 1000mg every 8 hours as needed for pain/discomfort. If you do experience severe pain, you may use Tramadol every 6 hours as needed. Please follow up with your surgeon in 2 weeks from your office visit. If you have any questions, their phone number is above. You may resume the remainder of your outpatient medications. Please follow up with your PCP within 1-2 weeks of discharge for continued care. Best of luck! Adenike Rowland PA-C Total Time Total Time Spent Total Time Spent (In Minutes): 40 Total Time Includes: Examination of the Patient, Discharge Planning and Medication Reconciliation Coding Level of Care Code 91944 INP/OBS DISCH >30 MIN Diagnoses Acute cholecystitis K81.0 Iron deficiency anemia D50.9
--- NOTE | 2025-01-06 10:44 | Surgery Progress Note ---
Date of Service January 06, 2025 Assessment & Plan (1) Acute cholecystitis: Plan: OK to discharge from medical standpoin instructions in chart F/U 2 weeks in my office no antibiotics needed at home Admission and Anticipated Discharge Date Admission Date: January 04, 2025 Subjective doing well Review of Systems Constitutional: no fever and no chills Respiratory: no dyspnea Cardiovascular: no chest pain Gastrointestinal: + abdominal pain; no nausea and no vomit ing Neurologic: no localized weakness Psychiatric: no behavioral changes Physical Exam Constitutional: WD/WN, vitals as above Respiratory: normal respiratory effort Cardiovascular: Rate/Rhythm: regular rate and regular rhythm Gastrointestinal (Abdomen): Inspection/Auscultation: abdomen normal to inspection Percussion/Palpation: + abdomen tender and abdomen soft Results & Data Vital Signs (Past 12 Hours) Vital Signs Temp Pulse Resp BP Pulse Ox O2 Del Method 01/06/25 09:00 36.8 C 78 18 165/77 H 96 Room Air 01/06/25 03:21 36.5 C 67 16 146/68 H 96 Room Air 01/05/25 23:23 37 C 63 18 147/71 H 96 Room Air 01/05/25 23:03 36.7 C 68 16 150/71 H 95 Room Air
[2025-01-06 11:09] VITALS: BP 154/70; PULSE 69
== END 2025-01-06 12:34 | disposition home or self-care (01) ==
LOC: 3W 16:37 → ED 16:37 → SUATTDRO 18:15 → 3W 19:22